=== PATIENT | male | born 1950 ===

== ENCOUNTER 2020-07-23 08:37 | Day surgery (SDC) | payer OTHER | END 2020-07-23 13:10 | disposition home or self-care (01) | LOC: AMB-ENDOS 08:37 | PROVIDERS: ATTEND Surgery | DX: D12.4 Benign neoplasm of descending colon (principal); D12.8 Benign neoplasm of rectum; K64.8 Other hemorrhoids; Z20.828 Contact with and (suspected) exposure to other viral communicable diseases ==